=== PATIENT | female | born 1995 | race African-American/Black ===

== ENCOUNTER 2022-10-07 03:33 | Emergency (ER) | payer OTHER, SELFPAY ==
[2022-10-07] VITALS (8 sets, daily range): BP systolic 98–117; BP diastolic 60–80; PULSE 72–96; RESP 14–18; TEMP 36.4; O2SAT 99–100
--- NOTE | ~2022-10-07 | CT_ITS ---
EXAMINATION: CT brain wo con DATE: 10/07/2022 08:02 INDICATION: Headache. TECHNIQUE: Computed tomography (CT) of the head was performed without intravenous contrast. The mA wa s adjusted according to patient size. Iterative reconstruction technique was employed. The dose-lengt h product was 605.33 mGy-cm. COMPARISON: None FINDINGS: There is no intracranial hemorrhage, acute infarction, or abnormal intracranial mass lesion . The ventricles are normal in size. The orbits are normal. The paranasal sinuses are clear. The mast oid air cells are normal. There is cerumen in right external auditory canal. IMPRESSION: 1. Normal brain. Reviewed, dictated and finalized at location A. IMPRESSION: 1. Normal brain.
--- NOTE | 2022-10-07 07:33 | ED.HA ---
HPI - Headache General Chief Complaint: Headache Stated Complaint: Headache Time Seen by Provider: 10/07/22 07:18 Source: patient Mode of arrival: ambulatory Limitations: no limitations History of Present Illness HPI Narrative: 27 years old -[place] female came to the emergency room with generalized headache, body aches for 1 week. Gets better sometimes and Tylenol. She reports some stomach upset and feeling tired. She denies any vomiting, diarrhea, does not take medicine at home, drove herself to the emergency room. She denies sick exposure. She denies aggravating or relieving factors. Patient is sexually active. Related Data Allergies Allergy/AdvReac Type Severity Reaction Status Date / Time quinine [From Qualaquin] Allergy Itching Verified 10/07/22 06:28 Review of Systems Review of Systems: All systems reviewed & are unremarkable except as noted in HPI and below Exam Narrative: General appearance: Well-developed, well-nourished Skin: Normal color Head: Normocephalic, nontraumatic Eyes: Clear conjunctiva ENT: Oropharynx normal, ears normal, nose normal Neck: Supple, nontender Chest and respiratory: Airway patent, no respiratory distress, no accessory muscle use Heart: Regular rate/rhythm Abdomen: Soft, nontender, no organomegaly, quiet bowel sounds Vascular: Normal peripheral pulses, normal capillary refill. Musculoskeletal: Normal range of motion, nontender back Neurologic: Alert and oriented ?3, [employer] is normal as tested, no gross motor deficit Course Reevaluation(s) Reevaluation #1: Feeling much better, no headache or nausea at this time after IV fluid and Zofran and Rocephin. Patient is ready to go. Date: 10/07/22 Time: 12:12 Vital Signs Vital signs: Vital Signs Temperature 36.4 C L 10/07/22 03:39 Pulse Rate 74 10/07/22 03:39 Respiratory Rate 18 10/07/22 03:39 Blood Pressure 117/60 10/07/22 03:39 Pulse Oximetry 100 10/07/22 03:39 Temperature 36.4 C L 10/07/22 03:39 Pulse Rate 80 10/07/22 08:49 Respiratory Rate 18 10/07/22 08:49 Blood Pressure 113/68 10/07/22 10:14 Pulse Oximetry 100 10/07/22 10:14 MDM - Headache MDM Narrative Medical decision making narrative: Patient presents with generalized headache and body aches, no fever, or vomiting or respiratory symptoms.. Differential diagnosis include strep throat, mono, COVID, urinary tract infection. Work-up today showed urinary tract infection with 3+ leukocyte esterase, CT head showed no acute abnormalities. Patient received 1 L of normal saline, 30 mg of Toradol IV, 4 mg of Zofran IV and 1 g of Rocephin IV prior to discharge. Urinary tract infection is high likely the underlying cause of patient's symptoms. the pt was discharged to home.the pt,s condition upon discharge was fair,education was provided to the pt in reference to the final impression,discharge study results,treatment,prognosis and need for follow up . Differential Diagnosis Differential diagnosis: Likely tension headache, headache and other (Upper respiratory infection, strep throat, mono, urinary tract infection) Lab Data Labs: Lab Results 10/07/22 10/07/22 10/07/22 Range/Units 08:24 08:25 08:25 Urine Color (Yellow) Urine Appearance (Clear) Urine pH (5.0-9.0) Ur Specific [place] (1.001-1.035) Urine Protein (Negative) mg/dL Urine Glucose (UA) (Negative) mg/dL Urine Ketones (Negative) mg/dL Ur Blood (Man) (Negative) Urine Nitrate (Negative) Urine Bilirubin (Negative) Urine Urobilinogen (<2.0) mg/dL Add Ur Microanalysis Leukocyte Esterase Rfl (Negative) VALENTIN/UL Urine RBC (0-2) /hpf
[2022-10-07] MEDS: KETOROLAC 30 MG/ML VIAL (*BKC) IV PUSH (08:46)
[2022-10-07] MEDS: SODIUM CHLORIDE 0.9% IV 1,000 ML 999 ML IV CONT (08:46)
[2022-10-07] MEDS: ONDANSETRON INJ 4 MG/2 ML VIAL IV PUSH (08:46)
[2022-10-07 09:11] LABS: Influenza A QL RT-PCR Negative (Negative); Influenza B QL RT-PCR Negative (Negative); RSV RNA, RT-PCR Negative (Negative); SARS-CoV-2 RNA PCR Negative
[2022-10-07 09:29] LABS: Strep Group A RT-PCR NOT DETECTED (Negative)
[2022-10-07 09:31] LABS: Monoscreen Negative (Negative); Negative Monotest Control Negative (Negative); Positive Monotest Control Positive (Positive)
[2022-10-07 10:42] LABS: Add Urine Microscopic? YES; Appearance Urine Turbid (Clear); Bacteria Urine 1+ /hpf; Bilirubin Urine Negative (Negative); Blood Urine Trace (Negative); Color Urine Yellow (Yellow); Glucose Urine UA Negative (Negative); Ketones Urine Negative (Negative); Leukocyte Esterase Ur 3+ LEU/UL (Negative); Need Manual Microscopic Reviewed; Nitrate Urine Negative (Negative); Non Pathogenic Casts 0-2; Protein Urine Negative (Negative); RBC Urine 0-2 /hpf (0-2); Specific Grav Ur 1.009 (1.001-1.035); Squamous Epithelial Cell Urine Many /hpf (Few); WBC Urine 21-50 /hpf
== END 2022-10-07 12:19 | disposition home or self-care (01) ==
PROVIDERS: Emergency Provider Emergency Medicine; PCP Emergency Medicine
DX: N39.0 Urinary tract infection, site not specified (principal); Z20.822 Contact with and (suspected) exposure to COVID-19
CPT/HCPCS: 70450; 81001; 86308; 87086; 87088; 87637; 87651; 96361; 96365; 96375; 99284; J0696; J1885; J2405; J7030